=== PATIENT | female | born 1980 | race Two or more races ===

== ENCOUNTER → 2022-08-07 | Outpatient (CLI) | payer BC ==
[2022-08-07 08:16] LABS: Basophils # (auto) 0.1 10 ^3/uL (0-0.2); Basophils % (auto) 0.7 % (0.0-2.0); Eosinophils # (auto) 0.1 10 ^3/uL (0-0.8); Eosinophils % (auto) 1.2 % (0.0-7.0); Hematocrit 37.2 % (36.0-46.0); Lymphocytes # (auto) 1.7 10 ^3/uL (0.4-5.4); Lymphocytes % (auto) 21.4 % (10.0-50.0); Mean Corpuscular Hemoglobin 26.6 pg (28.0-32.0); Mean Corpuscular Hgb Conc. 32.3 g/dL (32.0-36.0); Mean Corpuscular Volume 82.3 fL (80.0-100.0); Monocytes # (auto) 0.6 10 ^3/uL (0-1.3); Neutrophils # (auto) 5.5 10 ^3/uL (1.6-8.6); Neutrophils % (auto) 69.7 % (37.0-80.0); Red Blood Cells 4.52 10^6/uL (4.0-5.20); Red Cell Distribution Width 15.9 % (11.8-14.3); White Blood Cell 7.9 10^3/uL (4.4-10.8)
[2022-08-07 08:35] LABS: Calcium 9.1 mg/dL (8.5-10.1); Potassium 4.7 mmol/L (3.5-5.1)
[2022-08-07 08:42] LABS: BUN/Creatinine Ratio 13.8; Bilirubin, Total 0.4 mg/dL (0.2-1.0); Total Protein 7.4 g/dL (6.4-8.2)
== END | disposition home or self-care (01) ==
LOC: LAB 07:36
PROVIDERS: ATTEND Nurse Practitioner Family
DX: C73 Malignant neoplasm of thyroid gland (principal); D50.9 Iron deficiency anemia, unspecified
CPT/HCPCS: 36415; 80053; 84439; 84443; 85025

== ENCOUNTER 2022-11-25 12:37 | Inpatient (IN) | payer BC, OTHER ==
[~2022-11-25] VITALS: Ht 172.7 cm; Wt 81.2 kg
[2022-11-25] MEDS ORDERED: HYDROcodone-ACET 10/325MG TAB PO ONE (13:00)
[2022-11-25 13:19] LABS: Eosinophils # (auto) 0.1 10 ^3/uL (0-0.8); Hemoglobin 11.7 g/dL (12.2-16.2); Monocytes # (auto) 1.2 10 ^3/uL (0-1.3); Neutrophils # (auto) 14.3 10 ^3/uL (1.6-8.6)
[2022-11-25 13:20] LABS: Basophils # (auto) 0.1 10 ^3/uL (0-0.2); Basophils % (auto) 0.4 % (0.0-2.0); Eosinophils % (auto) 0.4 % (0.0-7.0); Lymphocytes # (auto) 1.2 10 ^3/uL (0.4-5.4); Lymphocytes % (auto) 7.3 % (10.0-50.0); Mean Corpuscular Hgb Conc. 31.6 g/dL (32.0-36.0); Mean Corpuscular Volume 79.2 fL (80.0-100.0); Monocytes % (auto) 6.9 % (0.0-12.0); Red Blood Cells 4.67 10^6/uL (4.0-5.20); Red Cell Distribution Width 15.2 % (11.8-14.3); White Blood Cell 16.8 10^3/uL (4.4-10.8)
[2022-11-25 13:36] LABS: INR 0.97 (0.9-1.15); Partial Thromboplastin Time 26.2 sec (24.6-33.4)
[2022-11-25 13:43] LABS: Calcium 8.9 mg/dL (8.5-10.1); Potassium 3.7 mmol/L (3.5-5.1)
[2022-11-25 13:50] LABS: BUN/Creatinine Ratio 14.3 (10.0-20.0); Bilirubin, Total 0.5 mg/dL (0.2-1.0); Total Protein 7.2 g/dL (6.4-8.2)
[2022-11-25] MEDS ORDERED: HYDROcodone-ACET 5/325MG TAB PO PRN (18:45)
[2022-11-25] MEDS ORDERED: ONDANSETRON HCL 4 MG/2 ML VIAL IV PRN (18:45)
[2022-11-25] MEDS ORDERED: DOCUSATE SOD 100 MG CAP PO PRN (18:45)
[2022-11-25] MEDS ORDERED: LEVO137T3 PO (18:48)
[2022-11-25] MEDS: SODIUM CHLORIDE 0.9% 1,000 ML IV SCH (19:35)
[2022-11-25 21:56] VITALS: BP 106/65
[2022-11-25 22:00] VITALS: BP 106/65
[2022-11-25] MEDS: HYDROcodone-ACET 10/325MG TAB PO PRN (22:29)
[2022-11-26] MEDS: SODIUM CHLORIDE 0.9% 1,000 ML IV SCH ×3 (04:06→23:50)
[2022-11-26 05:00] VITALS: BP 96/60
[2022-11-26 06:03] LABS: Basophils # (auto) 0.1 10 ^3/uL (0-0.2); Eosinophils # (auto) 0.2 10 ^3/uL (0-0.8); Lymphocytes % (auto) 23.3 % (10.0-50.0)
[2022-11-26 06:06] LABS: Basophils % (auto) 0.7 % (0.0-2.0); Eosinophils % (auto) 1.7 % (0.0-7.0); Hemoglobin 10.1 g/dL (12.2-16.2); Lymphocytes # (auto) 2.6 10 ^3/uL (0.4-5.4); Mean Corpuscular Hemoglobin 25.5 pg (28.0-32.0); Mean Corpuscular Hgb Conc. 32.6 g/dL (32.0-36.0); Mean Corpuscular Volume 78.3 fL (80.0-100.0); Monocytes # (auto) 1.3 10 ^3/uL (0-1.3); Monocytes % (auto) 11.3 % (0.0-12.0); Neutrophils # (auto) 7.1 10 ^3/uL (1.6-8.6); Red Blood Cells 3.96 10^6/uL (4.0-5.20); White Blood Cell 11.3 10^3/uL (4.4-10.8)
[2022-11-26 06:12] LABS: Potassium 3.5 mmol/L (3.5-5.1)
[2022-11-26 06:20] LABS: Albumin 3.1 g/dL (3.4-5.0); BUN/Creatinine Ratio 18.8 (10.0-20.0); Bilirubin, Total 0.3 mg/dL (0.2-1.0); Calcium 8.1 mg/dL (8.5-10.1); Total Protein 6.2 g/dL (6.4-8.2)
[2022-11-26] MEDS ORDERED: HYDROmorphone HCL 2 MG/ML VL/or syr IV PRN (07:30)
[2022-11-26] MEDS: HYDROcodone-ACET 10/325MG TAB PO PRN ×3 (07:53→21:33)
[2022-11-26 09:00] VITALS: BP 139/84
[2022-11-26] MEDS ORDERED: LEVOTHYROXINE SODIUM 25 MCG TAB PO SCH (10:00)
[2022-11-26] MEDS ORDERED: LEVOTHYROXINE SODIUM 112 MCG TAB PO SCH (10:00)
[2022-11-26] MEDS: ACETAMINOPHEN 325 MG TAB PO PRN ×2 (10:03→20:20)
[2022-11-26] MEDS ORDERED: DOCUSATE SOD 100 MG CAP PO ONE (10:30)
[2022-11-26] MEDS ORDERED: LACTULOSE 20Gm/30ML SOLN PO ONE (10:30)
[2022-11-26 13:00] VITALS: BP 146/81
[2022-11-26 17:00] VITALS: BP 129/92
[2022-11-26 19:57] LABS: Urine Bacteria FEW /hpf (None Seen); Urine Blood Negative /uL (Negative); Urine Mucus FEW (None Seen); Urine Specific Gravity 1.028 (1.001-1.035); Urine WBC 5 /hpf (0 - 5)
[2022-11-26] MEDS: LACTULOSE 20Gm/30ML SOLN PO SCH (21:32)
[2022-11-26] MEDS ORDERED: LORazepam 2MG/ML-1ML VIAL IV PRN ×2 (21:45)
[2022-11-26 22:00] VITALS: BP 142/81
[2022-11-27 05:00] VITALS: BP 99/62
[2022-11-27 05:47] LABS: Basophils # (auto) 0.1 10 ^3/uL (0-0.2); Eosinophils # (auto) 0.3 10 ^3/uL (0-0.8); Hematocrit 31.2 % (36.0-46.0)
[2022-11-27 05:50] LABS: Basophils % (auto) 0.9 % (0.0-2.0); Eosinophils % (auto) 2.8 % (0.0-7.0); Hemoglobin 10.2 g/dL (12.2-16.2); Lymphocytes % (auto) 22.9 % (10.0-50.0); Mean Corpuscular Hemoglobin 25.6 pg (28.0-32.0); Mean Corpuscular Hgb Conc. 32.6 g/dL (32.0-36.0); Mean Corpuscular Volume 78.7 fL (80.0-100.0); Neutrophils # (auto) 5.6 10 ^3/uL (1.6-8.6); Neutrophils % (auto) 62.4 % (37.0-80.0); Nucleated Red Blood Cells % 0.1 %; Red Blood Cells 3.96 10^6/uL (4.0-5.20); Red Cell Distribution Width 15.1 % (11.8-14.3); White Blood Cell 8.9 10^3/uL (4.4-10.8)
[2022-11-27] MEDS: LEVOTHYROXINE SODIUM 112 MCG TAB PO SCH (06:05)
[2022-11-27] MEDS: LEVOTHYROXINE SODIUM 25 MCG TAB PO SCH (06:05)
[2022-11-27] MEDS: HYDROcodone-ACET 10/325MG TAB PO PRN ×3 (06:05→22:35)
[2022-11-27 06:18] LABS: BUN/Creatinine Ratio 17.6 (10.0-20.0); Potassium 3.7 mmol/L (3.5-5.1)
[2022-11-27 08:00] VITALS: BP 124/80
[2022-11-27 09:00] VITALS: BP 124/80
[2022-11-27] MEDS: LACTULOSE 20Gm/30ML SOLN PO SCH ×2 (09:40→22:00)
[2022-11-27] MEDS ORDERED: LORazepam 0.5 MG TAB PO PRN (09:45)
[2022-11-27] MEDS: BACLOFEN 10 MG TAB PO PRN ×2 (10:40→20:01)
[2022-11-27] MEDS: SODIUM CHLORIDE 0.9% 1,000 ML IV SCH (12:45)
[2022-11-27 13:00] VITALS: BP 127/85
[2022-11-27] MEDS: HYDROmorphone HCL 2 MG/ML VL/or syr IV PRN (14:45)
[2022-11-27 17:00] VITALS: BP 143/68
[2022-11-27 22:00] VITALS: BP 120/66
[2022-11-28] MEDS: SODIUM CHLORIDE 0.9% 1,000 ML IV SCH ×2 (02:30→08:10)
[2022-11-28 05:00] VITALS: BP 119/68
[2022-11-28] MEDS: LEVOTHYROXINE SODIUM 112 MCG TAB PO SCH (06:24)
[2022-11-28] MEDS: HYDROcodone-ACET 10/325MG TAB PO PRN ×2 (06:25→18:59)
[2022-11-28] MEDS: LEVOTHYROXINE SODIUM 25 MCG TAB PO SCH (06:25)
[2022-11-28 08:00] VITALS: BP 141/74
[2022-11-28 08:36] VITALS: BP 141/74
[2022-11-28] MEDS: SUMAtriptan SUCCINATE 25 MG TAB PO PRN ×2 (09:07→12:41)
[2022-11-28 13:00] VITALS: BP 155/70
[2022-11-28 16:57] VITALS: BP 139/77
[2022-11-28] MEDS: HYDROmorphone HCL 2 MG/ML VL/or syr IV PRN (21:41)
[2022-11-28 22:00] VITALS: BP 124/79
[2022-11-29 05:00] VITALS: BP 101/54
[2022-11-29] MEDS: LEVOTHYROXINE SODIUM 25 MCG TAB PO SCH (06:55)
[2022-11-29] MEDS: LEVOTHYROXINE SODIUM 112 MCG TAB PO SCH (06:55)
[2022-11-29] MEDS: HYDROcodone-ACET 10/325MG TAB PO PRN (06:56)
[2022-11-29 09:00] VITALS: BP 136/74
[2022-11-29] MEDS ORDERED: SUM25T PO (09:59)
[2022-11-29] MEDS ORDERED: HYDR-4798 PO (09:59)
[2022-11-29] MEDS ORDERED: DOCU-265 PO (09:59)
[2022-11-29] MEDS ORDERED: BACL10TA PO (09:59)
[2022-11-29 13:00] VITALS: BP 115/80
== END 2022-11-29 15:20 | disposition home or self-care (01) | DRG 536 ==
LOC: EEVIPCON 12:37 → ER 12:37 → OVERFLOW 18:47 → CENTRAL 21:30
PROVIDERS: ADMIT Nurse Practitioner Family; ATTEND Internal Medicine
DX: S32.592A Other specified fracture of left pubis, initial encounter for closed fracture (principal); G62.9 Polyneuropathy, unspecified; R53.1 Weakness; E03.9 Hypothyroidism, unspecified; M41.9 Scoliosis, unspecified; Z83.3 Family history of diabetes mellitus; Z80.9 Family history of malignant neoplasm, unspecified; Y93.89 Activity, other specified; Y99.8 Other external cause status; V89.2XXA Person injured in unspecified motor-vehicle accident, traffic, initial encounter; Y92.410 Unspecified street and highway as the place of occurrence of the external cause; Z88.8 Allergy status to other drugs, medicaments and biological substances
CPT/HCPCS: 36415; 70551; 71045; 72125; 72128; 72131; 72141; 72146; 72148; 72195; 74176; 80048; 80053; 81001; 84443; 84484; 84702; 85025; 85610; 85730; 87081; 97110; 97116; 97163; G0378